=== PATIENT | male | born 1975 | race Caucasian/White ===

== ENCOUNTER 2019-02-27 22:17 | Emergency (ER) | payer BC, OTHER ==
--- NOTE | 2019-02-27 22:21 | PDOC ---
History of Present Illness - General Chief Complaint: Pain Stated Complaint: EPIGASTRIC PAIN Time Seen by Provider: 02/27/19 22:19 History Source: Patient Exam Limitations: No Limitations - History of Present Illness Initial Comments: 02/27/19 23:17 HPI 43 YOM with h/o GERD, H.pylori infection ~10 years ago, HTN and HLD presenting with epigastric abdominal pain x 1 day. He states it started after eating pasta with tomato sauce. Since then, he has had a sharp and burning epigastric pain, nonradiating, associated with nausea, but no vomiting or diarrhea. He has taken zantac without relief, in addition to natural remedies such as apple cider and green tea, without much relief either. He has had similar episodes of epigastric discomfort x 1 month, but had self resolved with dietary modifications. He admits to also eating spicy/fatty foods , chocolate in the past 2 weeks, as possible trigger. Has had GI eval in the past, h pylori infection ~10 years ago, no recurrence. GI in [place] [address] [place]. Denies fever, chills, chest pain, SOB, palpitation, dizziness, weakness, N, V, D , abdominal pain, bladder and bowel problems, leg swelling, No sick contacts or travel. No new changes in medications. PMH: HTN, HLD, GERD, h pylori PSH: Hernia repair ALL: NKDA Social: denies drug, cigarette use PMD Dr Rivas Past History - Past Medical History Allergies/Adverse Reactions: Allergies Allergy/AdvReac Type Severity Reaction Status Date / Time No Known Allergies Allergy Verified 03/04/16 13:28 Home Medications: Ambulatory Orders Ranitidine [Zantac -] 150 mg PO DAILY #30 tablet 03/04/16 Mag Hydrox/Al Hydrox/Simeth [Mylanta Suspension -] 30 ml PO Q6H PRN #1 bottle Disorders: Yes (ACID REFLUX) HTN: Yes Hypercholesterolemia: Yes - Surgical History Abdominal Surgery: Yes (HERNIA REPAIR) - Suicide/Smoking/Psychosocial Hx Smoking History: Never smoked Hx Alcohol Use: No Drug/Substance Use Hx: No Review of Systems - Review of Systems Able to Perform ROS?: Yes Comments:: 02/27/19 23:17 Review of systems Constitutional: no fevers or chills. HEENT: no headache or dizziness. No congestion. No visual/hearing disturbances. CVS: no cp or syncope. Resp: no sob. No cough. Gastrointestinal: +abdominal pain, nausea. no diarrhea, no vomiting. Genitourinary: no urinary sx, hematuria. MUSCULOSKELETAL: No joint pain and swelling. No neck or back pain. SKIN: no redness or skin changes, no discharge, no rash. No wounds. Hematologic: no easy bruising/bleeding. NEUROLOGIC: No headache, dizziness, LOC or altered mental status. No weakness, numbness or tingling. Psych: no anxiety or depression Allergic/Immunologic: no allergies All other systems reviewed and negative, or as documented in HPI. *Physical Exam - Physical Exam Comments: 02/27/19 23:18 Physical exam: General: Well appearing, awake and alert, NAD. HEENT: NCAT, PERRL, EOMI, clear conjunctiva, anicteric, moist mucus membranes, clear oropharynx, no oral lesions.. Neck: neck supple, FROM Resp: CTAB, normal and even respirations, no respiratory distress CVS: RRR, no murmurs, 2+ peripheral pulses throughout, no peripheral edema Abdomen: soft, +epigastric TTP, no rebound or guarding, no distension, abdominal striae present. no CVAT. neg salcedo's, no mcburney's point tenderness Back: nontender, normal inspection and ROM MSK: no edema, JORGE x4, ROM intact. No clubbing or cyanosis. normal bulk and tone. Neuro: alert Psych: calm and cooperative Skin: warm and well perfused, cap refill <2 sec, normal color Heart Score/ECG Review #1 ECG reviewed & interpreted by me at: 22:55 General ECG Interpretation: Sinus Rhythm, Normal Rate, Normal Intervals Compared to previous ECG there are: Previous ECG unavail 02/27/19 23:27 EKG normal sinus rhythm at 75 bpm, no interval abnormalities, narrow QRS, ST and T wave segments and morphology normal. ED Treatment Course - LABORATORY CBC & Chemistry Diagram: 02/27/19 22:50 02/27/19 22:50 Medical Decision Making - Medical Decision Making 02/27/19 23:19 See HPI for details. Prior notes reviewed, including admissions, discharges and consultations. Vital signs reviewed, wnl. DDx abdominal pain: Renal colic, biliary colic, metabolic/electrolyte derangements. GERD, gastritis, PUD, esophageal spasm, pancreatitis, hepatitis, constipation, colitis, gastroenteritis, cholecystitis, hernia laboratory results and imaging reviewed, basic labs and lytes wnl, LFTs/lipase_ also wnl; mildly elevated LFTs compared to prior in 2017, pt does admit to fatty liver so that could be etiology. no significant derangements to suggest hepatitis/liver toxicity. EKG normal sinus rhythm at 75 bpm, no interval abnormalities, narrow QRS, ST and T wave segments and morphology normal. ED course -interventions: IVF, GI cocktail, reassess feels improved, AP benign reexam. 02/28/19 00:08 pain now down to 4/10, feels much better no cp or sob. VS remain wnl. no systemic findings. doubt cardiac or intra abdominal pathology supportive care, rx meds pepcid and maalox as needed for heart burn sx. avoid triggers, diet modifications. Pt to be discharged in stable condition. Patient made aware of clinical impression, treatment recommendations and disposition plan, return precautions discussed (including but not limited to new or persistent/worsening symptoms, pain, fevers, or signs of infection, chest pain, respiratory distress, inability to tolerate oral intake, dehydration, syncope, or neurologic changes) . Follow up with PMD and/or GI specialist as recommended, follow up information provided, take medications as instructed for duration of time. continue with supportive care, avoid triggers and precipitants. All questions answered to patient's satisfaction and expressed understanding and comfort with this. At the time of discharge, the patient is alert, clinically improved, tolerating po and verbalizes understanding of instructions, satisfied with the care received and felt comfortable with the plan. Patient does not suffer from an acute life- threatening medical condition at this time and is safe for outpatient follow- up. 02/27/19 23:26 02/27/19 23:27 02/27/19 23:29 *DC/Admit/Observation/Transfer Diagnosis at time of Disposition: Epigastric abdominal pain - Discharge Dispostion Disposition: HOME Condition at time of disposition: Good Decision to Admit order: No - Prescriptions Prescriptions: Mag Hydrox/Al Hydrox/Simeth [Mylanta Suspension -] 30 ml PO Q6H PRN #1 bottle PRN Reason: heartburn - Referrals Referrals: Miguel Angel Cline DO [Staff Physician] - Regino Menezes MD [Staff Physician] - Abraham Paulino MD [Staff Physician] - - Patient Instructions Printed Discharge Instructions: DI for Gastritis, DI for Abdominal Pain-Adult, GERD Diet Additional Instructions: You may also take pepcid twice daily and maalox or mylanta three to four times a day with your meals for the heart burn symptoms Avoid spicy or fatty foods. Drink plenty of fluids, soups and broth. Important to stay hydrated. Avoid triggers that could precipitate the abdominal pain, nausea and vomiting. This could be reflux, gastritis that should self resolve with time Follow up with a assignment agent and primary doctor if symptoms persist. you may need further testing for infection or structural abnormalities with the assignment agent. - Post Discharge Activity
[2019-02-27 22:23] VITALS: BP 156/90; PULSE 92; TEMP 98.5; BMI 41.9
[2019-02-27] MEDS ORDERED: ACETAMINOPHEN 1000 MG/100 ML VIAL (NON FORMULARY) IVPB ONE (22:33)
[2019-02-27] MEDS ORDERED: FAMOTIDINE 20 MG/50 ML IVPB 20 MG/50 ML MG IVPB ONE ×2 (22:33→23:00)
[2019-02-27] MEDS ORDERED: SODIUM CHLORIDE 1,000 ML IV STA (22:33)
[2019-02-27] MEDS ORDERED: ACETAMINOPHEN INJECTION 100 ML IVPB ONE (23:00)
[2019-02-27 23:01] LABS: BASO % 0.9 % (0-2.0); EOS % 2.1 % (0-4.5); HEMATOCRIT 47.5 % (35.4-49); LYMPH % 31.3 % (8-40); MCH 29.4 pg (25.7-33.7); MCHC 33.6 g/dl (32.0-35.9); MEAN CELL VOLUME 87.6 fl (80-96); MEAN PLT VOLUME 9.4 fl (7.5-11.1); MONO % 5.6 % (3.8-10.2); NEUT % 60.1 % (42.8-82.8); PLATELET COUNT 235 K/MM3 (134-434); RBC 5.43 M/mm3 (4.00-5.60); RDW 12.1 % (11.9-15.9); WHITE BLOOD COUNT 6.9 K/mm3 (4.0-10.8)
[2019-02-27 23:21] LABS: ALBUMIN 4.3 g/dl (3.4-5.0); BILIRUBIN,TOTAL 1.2 mg/dl (0.2-1); CALCIUM 9.6 mg/dl (8.5-10); CREATININE 0.8 mg/dl (0.55-1.3); POTASSIUM 3.7 mmol/L (3.5-5.1); TOT PROT 7.5 g/dl (6.4-8.2)
--- NOTE | 2019-02-28 15:23 | EKG ---
Test Reason : Blood Pressure : / mmHG Vent. Rate : 075 BPM Atrial Rate : 075 BPM P-R Int : 156 ms QRS Dur : 096 ms QT Int : 394 ms P-R-T Axes : 037 022 032 degrees QTc Int : 439 ms NORMAL SINUS RHYTHM NORMAL ECG NO PREVIOUS ECGS AVAILABLE Confirmed by JUAN JOSE SALVADOR MD ([id number]) on 02/28/2019 3:22:51 PM Referred By: MD WATSON Confirmed By:JUAN JOSE SALVADOR MD
== END 2019-02-28 00:08 | disposition home or self-care (01) ==
LOC: FER 22:17
PROC: 3E033NZ Introduction of Analgesics, Hypnotics, Sedatives into Peripheral Vein, Percutaneous Approach (ICD-10-PCS; principal; 2019-02-27)
PROC: 3E0337Z Introduction of Electrolytic and Water Balance Substance into Peripheral Vein, Percutaneous Approach (ICD-10-PCS; 2019-02-27)
PROC: 3E033GC Introduction of Other Therapeutic Substance into Peripheral Vein, Percutaneous Approach (ICD-10-PCS; 2019-02-27)
DX: R10.13 Epigastric pain (principal); I10 Essential (primary) hypertension; E78.5 Hyperlipidemia, unspecified; K21.9 Gastro-esophageal reflux disease without esophagitis
CPT/HCPCS: 36415; 80053; 83690; 85025; 93005; 99283-25; J0131; J7030

== ENCOUNTER 2021-07-30 02:56 | Emergency (ER) | payer BC ==
[2021-07-30 03:03] VITALS: BP 158/101; PULSE 113; BMI 42.0
== END 2021-07-30 04:08 | disposition home or self-care (01) ==
LOC: FER 02:56
DX: R04.0 Epistaxis (principal)
CPT/HCPCS: 99281-25